=== PATIENT | female | born 1985 | race Hispanic/Latino ===

== ENCOUNTER 2017-06-30 08:01 | Day surgery (SDC) | payer OTHER ==
[2017-06-28 15:20] VITALS: BP 122/75
[2017-06-28 15:24] LABS: BASOPHILS % (AUTO) 0.3 % (0.0-5.0); EOSINOPHILS % (AUTO) 2.9 % (0.0-8.0); HEMATOCRIT 34.7 % (36-48); LYMPHOCYTES % (AUTO) 22.6 % (21.0-51.0); MEAN CORPUSCULAR HEMOGLOBIN 32.4 pg (27.0-33.0); MEAN CORPUSCULAR VOLUME 89.9 fL (79-99); MONOCYTES % (AUTO) 5.4 % (3.0-13.0); NEUTROPHILS % (AUTO) 68.8 % (40.0-77.0); PLATELET COUNT (AUTO) 225 K/uL (130-400); RED BLOOD CELL COUNT(AUTO) 3.86 MIL/uL (4.00-5.50); RED CELL DISTRIBUTION WIDTH 13.2 % (11.0-15.5); WHITE BLOOD COUNT (AUTO) 9.3 K/uL (4.8-10.8)
[~2017-06-30] VITALS: Ht 162.6 cm; Wt 71.3 kg
[2017-06-30] VITALS (16 sets, daily range): BP systolic 102–124; BP diastolic 61–77
[~2017-06-30 08:01] MED LIST: CEFAZOLIN SODIUM 1 GM VIAL IVP SCH; LACTATED RINGERS 1000ML 1,000 ML IV SCH
[2017-06-30] MEDS ORDERED: VASOPRESSIN 20 UNITS/ML 1ML VIAL ONE (09:16)
[2017-06-30] MEDS ORDERED: STRONG IODINE SOLUTION 30ML BOTTLE ONE (09:17)
[2017-06-30] MEDS ORDERED: PROPOFOL 10 MG/ML 20ML VIAL IV ONE (09:51)
[2017-06-30] MEDS ORDERED: FENTANYL CITRATE PF 50 MCG/1 ML 2ML VIAL ONE (09:51)
[2017-06-30] MEDS ORDERED: MIDAZOLAM HCL 1 MG/ML 2ML VIAL ONE (09:51)
[2017-06-30] MEDS ORDERED: MEPERIDINE-PF 25 MG/ML SYG ONE ×3 (10:50→11:47)
[2017-06-30] MEDS ORDERED: MORPHINE SULFATE 2 MG/ML 1ML SYG ONE (11:30)
[2017-06-30] MEDS ORDERED: KETOROLAC TROMETHAMINE 30MG/ML ONE (11:46)
== END 2017-06-30 12:55 | disposition home or self-care (01) ==
LOC: DAH 08:01
PROVIDERS: ATTEND Specialist
DX: R87.613 High grade squamous intraepithelial lesion on cytologic smear of cervix (HGSIL) (principal)
CPT/HCPCS: 36415; 57520; 84703; 85025; 86850; 86900; 86901; A4351; A4510; A4600; J1885; J2175 ×3; J2250; J2704; J3010; J3490; J7120 ×2; J0690

== ENCOUNTER 2017-08-13 09:30 | Inpatient (IN) | payer OTHER ==
[~2017-08-13] VITALS: Ht 162.6 cm; Wt 72.6 kg
[2017-08-13 10:31] LABS: BASOPHILS % (AUTO) 0.4 % (0.0-5.0); EOSINOPHILS % (AUTO) 1.6 % (0.0-8.0); HEMATOCRIT 37.8 % (36-48); LYMPHOCYTES % (AUTO) 25.6 % (21.0-51.0); MEAN CORPUSCULAR HEMOGLOBIN 31.3 pg (27.0-33.0); MEAN CORPUSCULAR HGB CONC 35.6 g/dL (32.0-36.0); NEUTROPHILS % (AUTO) 68.4 % (40.0-77.0); PLATELET COUNT (AUTO) 236 K/uL (130-400); RED CELL DISTRIBUTION WIDTH 12.2 % (11.0-15.5); WHITE BLOOD COUNT (AUTO) 8.1 K/uL (4.8-10.8)
[2017-08-13 10:36] VITALS: BP 115/75
[2017-08-13] MEDS ORDERED: LACTATED RINGERS 1000ML 1,000 ML IV SCH (12:00)
[2017-08-17] VITALS (20 sets, daily range): BP systolic 108–145; BP diastolic 63–90
[2017-08-17] MEDS ORDERED: GLYCOPYRROLATE 0.2 MG/ML 5 ML VIAL ONE ×2 (07:35→09:37)
[2017-08-17] MEDS ORDERED: MIDAZOLAM HCL 1 MG/ML 2ML VIAL ONE ×2 (07:35→08:19)
[2017-08-17] MEDS ORDERED: PROPOFOL 10 MG/ML 20ML VIAL IV ONE (07:35)
[2017-08-17] MEDS ORDERED: LIDOCAINE PF 2% 5ML ABBOJECT ONE (07:35)
[2017-08-17] MEDS ORDERED: DEXAMETHASONE SOD PHOSPHATE 10MG/ML 1ML VIAL ONE ×2 (07:35→09:37)
[2017-08-17] MEDS ORDERED: ONDANSETRON HCL 4 MG/2 ML VIAL ONE (07:35)
[2017-08-17] MEDS ORDERED: FENTANYL CITRATE PF 50 MCG/1 ML 2ML VIAL ONE ×3 (07:36→09:13)
[2017-08-17] MEDS ORDERED: ROPIVACAINE 0.5% 5MG/ML 30ML IJ ONE (07:40)
[2017-08-17] MEDS ORDERED: CALDOLOR 800MG+NS 250ML 250 ML IV ONE (07:40)
[2017-08-17] MEDS: CEFAZOLIN SODIUM 1 GM VIAL IVP SCH ×2 (08:00→08:30)
[2017-08-17] MEDS ORDERED: ESMOLOL HCL 10 MG/ML 10 ML VIAL ONE (08:58)
[2017-08-17] MEDS ORDERED: EPHEDRINE SULFATE 50 MG/ML AMPULE ONE (09:12)
[2017-08-17] MEDS ORDERED: PHENYLEPHRINE HCL 10 MG/ML 1ML VIAL IV ONE (09:36)
[2017-08-17] MEDS ORDERED: ROCURONIUM BROMIDE 10MG/1ML 5ML VL ONE (09:36)
[2017-08-17] MEDS ORDERED: SUCCINYLCHOLINE CHLORIDE 20 MG/ML 10 ML VIAL ONE (09:36)
[2017-08-17] MEDS ORDERED: LIDOCAINE HCL 4% LTA SOL 4 ML VIAL ONE (09:36)
[2017-08-17] MEDS ORDERED: NEOSTIGMINE METHYLSULFATE 1MG/ML IV ONE (09:37)
[2017-08-17] MEDS ORDERED: ONDANSETRON HCL MDV 20ML 2 MG/ML VIAL ONE (09:37)
[2017-08-17] MEDS ORDERED: THROMBIN-JMI 20000 UNIT KIT TP ONE (09:58)
[2017-08-17] MEDS ORDERED: MEPERIDINE-PF 25 MG/ML SYG ONE ×2 (10:29→10:45)
[2017-08-17] MEDS ORDERED: BISACODYL 10 MG SUPP.RECT RC PRN (10:30)
[2017-08-17] MEDS ORDERED: KETOROLAC TROMETHAMINE 30MG/ML ONE (10:45)
[2017-08-17] MEDS: MEPERIDINE-PF 75 MG/ML SYG IM PRN ×3 (12:34→23:43)
[2017-08-17] MEDS: ACETAMINOPHEN-CODEINE 300/30MG TAB PO PRN ×2 (14:41→20:30)
[2017-08-17] MEDS: DEXTROSE 5 %-0.45 % NACL 1,000 ML IV PRN (18:32)
[2017-08-17] MEDS: DOCUSATE SODIUM 100 MG CAP PO PRN (20:27)
[2017-08-17] MEDS: SIMETHICONE 80 MG TAB.CHEW PO PRN (20:27)
[2017-08-18] MEDS: DEXTROSE 5 %-0.45 % NACL 1,000 ML IV PRN (02:56)
[2017-08-18 03:36] VITALS: BP 118/62
[2017-08-18 07:45] VITALS: BP 112/71
[2017-08-18] MEDS: SIMETHICONE 80 MG TAB.CHEW PO PRN ×2 (09:14→20:51)
[2017-08-18] MEDS: DOCUSATE SODIUM 100 MG CAP PO PRN ×2 (09:14→20:51)
[2017-08-18] MEDS: ACETAMINOPHEN-CODEINE 300/30MG TAB PO PRN ×2 (09:15→17:41)
[2017-08-18 09:56] LABS: BASOPHILS % (AUTO) 0.2 % (0.0-5.0); EOSINOPHILS % (AUTO) 0.3 % (0.0-8.0); MEAN CORPUSCULAR HEMOGLOBIN 30.3 pg (27.0-33.0); MEAN CORPUSCULAR VOLUME 89.1 fL (79-99); MONOCYTES % (AUTO) 6.8 % (3.0-13.0); NEUTROPHILS % (AUTO) 72.7 % (40.0-77.0); PLATELET COUNT (AUTO) 193 K/uL (130-400); RED BLOOD CELL COUNT(AUTO) 3.25 MIL/uL (4.00-5.50); RED CELL DISTRIBUTION WIDTH 12.3 % (11.0-15.5); WHITE BLOOD COUNT (AUTO) 11.5 K/uL (4.8-10.8)
[2017-08-18 11:38] VITALS: BP 112/67
[2017-08-18] MEDS: IBUPROFEN 800 MG TAB PO SCH ×2 (12:08→20:51)
[2017-08-18 15:44] VITALS: BP 115/70
[2017-08-18 19:49] VITALS: BP 110/73
[2017-08-19 00:54] VITALS: BP 113/66
[2017-08-19] MEDS: IBUPROFEN 800 MG TAB PO SCH ×2 (04:34→10:54)
[2017-08-19 04:45] VITALS: BP 122/77
[2017-08-19 07:36] VITALS: BP 115/68
[2017-08-19] MEDS: DOCUSATE SODIUM 100 MG CAP PO PRN (08:55)
[2017-08-19 11:40] VITALS: BP 116/74
== END 2017-08-19 11:45 | disposition home or self-care (01) | DRG 741 ==
LOC: EDSTATUS 09:30 → DAHIP 08-17 07:09 → WSH 08-17 11:54
PROVIDERS: ADMIT Specialist; ATTEND Specialist
PROC: 0UT90ZZ Resection of Uterus, Open Approach (ICD-10-PCS; principal; 2017-08-17 08:17)
DX: D06.9 Carcinoma in situ of cervix, unspecified (principal)
CPT/HCPCS: 36415; 84703; 85025; 86850; 86900; 86901; 88309; A4218; A4344; J0330; J0690; J1100; J1741; J1885; J2001; J2175; J2250; J2370; J2405; J2704; J2710; J2795; J3010; J3490; J7120